=== PATIENT | male | born 1995 ===

== ENCOUNTER → 2024-10-26 | Outpatient (CLI) | payer OTHER ==
[2024-10-27 15:29] LABS: Chlamydia Trachomatis Throat NOT DETECTED (NOT DETECT); Neisseria Gonorrhoea Throat NOT DETECTED (NOT DETECT)
[2024-10-27 15:30] LABS: Chlamydia Trachomatis Urine NOT DETECTED (NOT DETECT); Neisseria Gonorrhoea Urine NOT DETECTED (NOT DETECT)
== END ==
LOC: LAB 17:53 → LAB SHORT 17:53
PROVIDERS: Physician Assistant
DX: N34.1 Nonspecific urethritis (principal)
CPT/HCPCS: 87491; 87591